=== PATIENT | female | born 1955 | race Caucasian/White ===

== ENCOUNTER → 2016-05-15 | Outpatient (CLI) | payer SELFPAY | END | disposition home or self-care (01) | LOC: NUC 08:00 | DX: E83.52 Hypercalcemia (principal); E21.3 Hyperparathyroidism, unspecified | CPT/HCPCS: 78072; A9500; A9512 ==

== ENCOUNTER 2017-07-01 10:41 | Emergency (ER) | payer SELFPAY ==
[~2017-07-01] VITALS: Ht 170.2 cm; Wt 136.4 kg
[2017-07-01 11:17] LABS: BASOPHIL (%) 0.9 % (0-1); BASOPHIL COUNT 0.1 K/uL (0-0.1); EOSINOPHIL (%) 1.7 % (0-5); EOSINOPHIL COUNT 0.1 K/uL (0-0.3); HEMATOCRIT 38.5 % (36.0-46.0); HEMOGLOBIN 12.8 G/DL (11.9-15.5); IMMATURE GRANULOCYTE (%) 0.1 % (0.0-0.7); LYMPHOCYTE (%) 24.9 % (15-42); LYMPHOCYTE COUNT 1.9 K/uL (1.0-2.8); MCHC 33.2 G/DL (30.0-36.0); MCV 93.2 FL (83-99); MONOCYTE (%) 7.2 % (3-12); MONOCYTE COUNT 0.6 K/uL (0-0.8); NEUTROPHIL (%) 65.2 % (45-76); PLATELET COUNT 291 K/uL (156-360); RBC DIS.WIDTH-CV 11.6 % (11.8-14.6); RBC DIS.WIDTH-SD 39.8 % (39-53); RED BLOOD COUNT 4.13 M/uL (3.80-5.20); WHITE BLOOD COUNT 7.6 K/uL (4.1-10.2)
[2017-07-01 11:25] LABS: INTER. NORMALIZED RATIO 1.1
[2017-07-01 11:27] LABS: PTT 25.8 SEC (25-37)
[2017-07-01 11:53] LABS: CHLORIDE 104 MEQ/L (99-109); CREATININE 0.7 MG/DL (0.6-1.3); GFR ESTIMATE (CALCULATED) > 59 mL/min/; GLUCOSE 99 mg/dL (70-99); POTASSIUM 3.8 MEQ/L (3.7-5.4); SODIUM 137 MEQ/L (136-147); UREA NITROGEN (BUN) 17 mg/dL (9-23)
[2017-07-01 11:57] LABS: TROP-I INTERPRETATION NEGATIVE; TROPONIN-I < 0.01 ng/mL (0.0-0.30)
[2017-07-01 13:50] LABS: TROP-I INTERPRETATION NEGATIVE; TROPONIN-I < 0.01 ng/mL (0.0-0.30)
[2017-07-01 14:33] VITALS: BP 128/66
== END 2017-07-01 14:36 | disposition home or self-care (01) ==
LOC: EME 10:41
PROVIDERS: Emergency Medicine
DX: R07.89 Other chest pain (principal); Z87.891 Personal history of nicotine dependence
CPT/HCPCS: 71045; 80048; 84484; 85025; 85610; 85730; 93005; 99281; 99285

== ENCOUNTER 2017-07-12 08:49 | Observation (INO) | payer SELFPAY ==
[~2017-07-12] VITALS: Ht 170.2 cm; Wt 140.4 kg
[2017-07-12 09:26] LABS: BASOPHIL COUNT 0.1 K/uL (0-0.1); EOSINOPHIL (%) 2.1 % (0-5); EOSINOPHIL COUNT 0.2 K/uL (0-0.3); HEMATOCRIT 43.5 % (36.0-46.0); HEMOGLOBIN 14.5 G/DL (11.9-15.5); IMMATURE GRANULOCYTE (%) 0.3 % (0.0-0.7); LYMPHOCYTE (%) 32.6 % (15-42); LYMPHOCYTE COUNT 2.5 K/uL (1.0-2.8); MCH 31.2 PG (29.0-34.0); MCHC 33.3 G/DL (30.0-36.0); MCV 93.5 FL (83-99); MONOCYTE (%) 5.6 % (3-12); MONOCYTE COUNT 0.4 K/uL (0-0.8); NEUTROPHIL (%) 58.4 % (45-76); NEUTROPHIL COUNT 4.5 K/uL (1.8-6.4); PLATELET COUNT 310 K/uL (156-360); RBC DIS.WIDTH-CV 11.6 % (11.8-14.6); RBC DIS.WIDTH-SD 39.8 % (39-53); RED BLOOD COUNT 4.65 M/uL (3.80-5.20); WHITE BLOOD COUNT 7.7 K/uL (4.1-10.2)
[2017-07-12 09:43] LABS: PTT 28.1 SEC (25-37)
[2017-07-12 09:52] LABS: TROP-I INTERPRETATION NEGATIVE; TROPONIN-I < 0.01 ng/mL (0.0-0.30)
[2017-07-12 10:08] LABS: ALBUMIN 4.6 G/DL (3.2-4.8); ALKALINE PHOSPHATASE 96 IU/L (3-129); ALT (GPT) 39 IU/L (3-49); AST (GOT) 25 IU/L (2-34); CHLORIDE 105 MEQ/L (99-109); CREATINE KINASE 70 IU/L (1-294); CREATININE 0.7 MG/DL (0.6-1.3); GFR ESTIMATE (CALCULATED) > 59 mL/min/; GLUCOSE 107 mg/dL (70-99); MAGNESIUM 1.9 mg/dl (1.3-2.7); POTASSIUM 3.9 MEQ/L (3.7-5.4); SODIUM 141 MEQ/L (136-147); TOTAL BILIRUBIN 0.5 MG/DL (0.0-1.0); TOTAL CK 70 IU/L (1-294); TOTAL PROTEIN 6.9 G/DL (6.4-8.3); UREA NITROGEN (BUN) 15 mg/dL (9-23)
[2017-07-12 10:24] LABS: CK-MB 1.4 ng/mL (0.0-4.9)
[2017-07-12] MEDS ORDERED: SINGULAIR10 MG PO (11:19)
[2017-07-12] MEDS ORDERED: LOSARTAN PO (11:19)
[2017-07-12] MEDS ORDERED: DESLORATADINE5 MG PO (11:19)
[2017-07-12] MEDS ORDERED: HYDROCHLOROTHIAZIDE PO (11:19)
[2017-07-12] MEDS ORDERED: PAXIL40 MG PO (11:20)
[2017-07-12] MEDS ORDERED: VITAMIN D5000 UNI1 PO (11:20)
[2017-07-12] MEDS ORDERED: VENTOLIN HFA18 GM IH (11:21)
[2017-07-12] MEDS ORDERED: MELOXICAM PO (11:21)
[2017-07-12] MEDS ORDERED: PREVACID15 MG PO (11:23)
[2017-07-12 13:41] VITALS: BP 100/59
[2017-07-12 16:08] VITALS: BP 115/51
[2017-07-12 16:23] LABS: D-DIMER ELISA < 150.00 ng/mLDDU (<230)
[2017-07-12 16:32] LABS: TROP-I INTERPRETATION NEGATIVE; TROPONIN-I 0.03 ng/mL (0.0-0.30)
[2017-07-12 20:00] VITALS: BP 118/65
[2017-07-12 20:19] LABS: TROP-I INTERPRETATION NEGATIVE; TROPONIN-I 0.01 ng/mL (0.0-0.30)
[2017-07-13 00:15] VITALS: BP 131/66
[2017-07-13 04:03] VITALS: BP 123/57
[2017-07-13 04:58] LABS: HEMATOCRIT 39.4 % (36.0-46.0); HEMOGLOBIN 13.2 G/DL (11.9-15.5); MCH 31.7 PG (29.0-34.0); MCHC 33.5 G/DL (30.0-36.0); MCV 94.5 FL (83-99); PLATELET COUNT 294 K/uL (156-360); RBC DIS.WIDTH-CV 11.6 % (11.8-14.6); RBC DIS.WIDTH-SD 39.8 % (39-53); RED BLOOD COUNT 4.17 M/uL (3.80-5.20); WHITE BLOOD COUNT 7.5 K/uL (4.1-10.2)
[2017-07-13 05:20] LABS: INTER. NORMALIZED RATIO 1.2
[2017-07-13 05:23] LABS: PTT 30.3 SEC (25-37)
[2017-07-13 07:46] VITALS: BP 127/47
[2017-07-13] MEDS ORDERED: CARDIZEM30 MG PO (07:48)
[2017-07-13] MEDS ORDERED: ELIQUIS5 MG PO (07:48)
== END 2017-07-13 08:42 | disposition home or self-care (01) ==
LOC: EME 08:49 → 4EAST 12:31 → EDOF 12:31 → 4EAST 12:31 → ENRESERV 12:32 → 4EAST 13:33
PROVIDERS: Emergency Medicine; Internal Medicine Cardiovascular Disease; Physician Assistant
DX: I48.0 Paroxysmal atrial fibrillation (principal); I10 Essential (primary) hypertension; M19.072 Primary osteoarthritis, left ankle and foot; M19.071 Primary osteoarthritis, right ankle and foot; E66.01 Morbid (severe) obesity due to excess calories; Z87.891 Personal history of nicotine dependence; I95.9 Hypotension, unspecified; Z98.1 Arthrodesis status; Z82.49 Family history of ischemic heart disease and other diseases of the circulatory system; E21.3 Hyperparathyroidism, unspecified; F32.9 Major depressive disorder, single episode, unspecified; Z82.3 Family history of stroke; Z88.0 Allergy status to penicillin; Z88.2 Allergy status to sulfonamides; Z88.8 Allergy status to other drugs, medicaments and biological substances
CPT/HCPCS: 71045; 80053; 82550; 82553; 83735; 84439; 84443; 84484; 85025; 85027; 85379; 85610; 85730; 93005; 99281; 99285; G0378